=== PATIENT | male | born 1995 | race Caucasian/White ===

== ENCOUNTER 2018-01-13 03:18 | Inpatient (IN) | payer MEDICAID ==
[~2018-01-13] VITALS: Ht 167.6 cm; Wt 79.5 kg
[2018-01-13 03:53] LABS: BASOPHILS % (AUTO) 0.7 % (0.0-2.0); EOSINOPHILS % (AUTO) 4.1 % (1.0-6.0); HEMATOCRIT 41.8 % (41-53); HEMOGLOBIN 14.9 g/dL (13.5-17.5); LYMPHOCYTES # (AUTO) 1.8 K/uL (1.0-4.8); LYMPHOCYTES % (AUTO) 26.7 % (22.0-44.0); MEAN CORPUSCULAR HEMOGLOBIN 30.3 pg (26.0-34.0); MEAN CORPUSCULAR HGB CONC 35.6 G/dL (31.0-37.0); MEAN CORPUSCULAR VOLUME 85 fL (80-100); MONOCYTES # (AUTO) 0.7 K/uL (0.1-1.0); MONOCYTES % (AUTO) 9.7 % (2.0-9.0); NEUTROPHILS % (AUTO) 58.8 % (40.0-70.0); PLATELET COUNT (AUTO) 184 K/uL (150-450)
[2018-01-13 04:04] LABS: ANION GAP 8 mmol/L (8-16); CALCIUM, TOTAL 8.8 mg/dL (8.8-10.5); CARBON DIOXIDE 27 mmol/L (22-29); CHLORIDE 106 mmol/L (98-107); CREATININE 0.98 mg/dL (0.60-1.30); GLOMERULAR FILTR. RATE CALC > 60 mL/min (>60); GLUCOSE,RANDOM 99 mg/dL (70-110); POTASSIUM 3.7 mmol/L (3.5-5.1); SODIUM SERUM 141 mmol/L (136-145); UREA NITROGEN, BLOOD 11 mg/dL (7-18)
[2018-01-13 04:07] LABS: AMPHET/METH SCREEN,URINE NEGATIVE (NEGATIVE); BARBITURATE SCREEN, URINE NEGATIVE (NEGATIVE); BENZODIAZEPINES SCREEN,URINE NEGATIVE (NEGATIVE); CANNABINOID SCREEN,URINE POSITIVE (NEGATIVE); COCAINE SCREEN,URINE NEGATIVE (NEGATIVE); METHADONE SCREEN, URINE NEGATIVE (NEGATIVE); OPIATE SCREEN,URINE NEGATIVE (NEGATIVE)
[2018-01-13 04:08] LABS: PHENCYCLIDINE SCREEN,URINE NEGATIVE (NEGATIVE)
[2018-01-13 04:10] LABS: ALANINE AMINOTRANSFERASE 21 U/L (12-78); ALBUMIN 4.3 g/dL (3.4-5.0); ALKALINE PHOSPHATASE 92 U/L (46-116); ASPARTATE AMINOTRANSFERASE 13 U/L (15-37); BILIRUBIN,TOTAL 1.4 mg/dL (0.1-1.0); TOTAL PROTEIN, SERUM 7.2 g/dL (6.4-8.2)
[2018-01-13] MEDS ORDERED: HALOPERIDOL 5 MG TABLET PO PRN (04:45)
[2018-01-13 05:14] LABS: CHOL/HDL RATIO 3.6 (4.2-7.3); CHOLESTEROL 166 mg/dL (131-200); HDL CHOLESTEROL 46 mg/dL (40-60); LDL CHOL (CALC.) 109 mg/dL (0-130); THYROID STIMULATING HORMONE 1.02 uIU/mL (0.36-3.74); TRIGLYCERIDES 55 mg/dL (15-150)
[2018-01-13 12:47] VITALS: BP 122/85
[2018-01-13] MEDS: ZOLPIDEM TARTRATE 10 MG TABLET PO PRN (21:44)
[2018-01-14] MEDS ORDERED: PNEUMOCOCCAL VACCINE POLYVALENT 0.5 ML VIAL [PPSV23] IM ONE (00:30)
[2018-01-14 06:09] VITALS: BP 131/88
[2018-01-14] MEDS: LORazepam 2 MG TABLET PO PRN (07:35)
[2018-01-14 08:52] VITALS: BP 157/82
[2018-01-14 09:22] VITALS: BP 122/72
[2018-01-14] MEDS ORDERED: IBUPROFEN 400 MG TABLET PO PRN (09:30)
[2018-01-14] MEDS ORDERED: ACETAMINOPHEN 325 MG TABLET PO PRN (09:30)
[2018-01-14] MEDS: CITALOPRAM HYDROBROMIDE 20 MG TABLET PO SCH (13:18)
[2018-01-14 16:45] VITALS: BP 140/85
[2018-01-14] MEDS: PRAZOSIN HCL 1 MG CAPSULE PO SCH (20:36)
[2018-01-14] MEDS: ZOLPIDEM TARTRATE 10 MG TABLET PO PRN (22:03)
[2018-01-15 01:19] VITALS: BP 125/87
[2018-01-15 01:22] VITALS: BP 124/95
[2018-01-15] MEDS: LORazepam 2 MG TABLET PO PRN ×2 (01:22→14:55)
[2018-01-15 08:07] VITALS: BP 118/62
[2018-01-15 09:03] LABS: CHOL/HDL RATIO 3.5 (4.2-7.3); THYROID STIMULATING HORMONE 1.1 uIU/mL (0.36-3.74)
[2018-01-15 09:06] LABS: HEMOGLOBIN A1C 5.8 % (4.5-6.2)
[2018-01-15] MEDS: CITALOPRAM HYDROBROMIDE 20 MG TABLET PO SCH (09:39)
[2018-01-15 16:00] VITALS: BP 140/85
[2018-01-15] MEDS: PRAZOSIN HCL 1 MG CAPSULE PO SCH (20:39)
[2018-01-15] MEDS: ZOLPIDEM TARTRATE 10 MG TABLET PO PRN (22:02)
[2018-01-16] MEDS: LORazepam 2 MG TABLET PO PRN ×2 (00:05→09:35)
[2018-01-16 01:30] VITALS: BP 121/73
[2018-01-16 08:16] VITALS: BP 137/79
[2018-01-16] MEDS: CITALOPRAM HYDROBROMIDE 20 MG TABLET PO SCH (09:35)
[2018-01-16] MEDS ORDERED: PRAZ1 PO (10:36)
[2018-01-16] MEDS ORDERED: CITA-106 PO (10:37)
== END 2018-01-16 13:50 | disposition home or self-care (01) | DRG 754 ==
LOC: EMS 03:20 → AHU 12:17 → B2S 16:24
PROVIDERS: ADMIT Psychiatry & Neurology Psychiatry; ATTEND Psychiatry & Neurology Psychiatry
DX: F32.9 Major depressive disorder, single episode, unspecified (principal); Z91.14 Patient's other noncompliance with medication regimen; I10 Essential (primary) hypertension; F41.9 Anxiety disorder, unspecified; F12.90 Cannabis use, unspecified, uncomplicated; G89.29 Other chronic pain; M54.5 Low back pain; F43.10 Post-traumatic stress disorder, unspecified; G47.00 Insomnia, unspecified; Z28.21 Immunization not carried out because of patient refusal; Z71.51 Drug abuse counseling and surveillance of drug abuser
CPT/HCPCS: 83036; 84439; 84443; 90471; 99285; G0480